=== PATIENT | female | born 1985 | race Asian ===

== ENCOUNTER 2020-05-27 06:27 | Emergency (ER) | payer BC ==
[~2020-05-27] VITALS: Ht 149.9 cm; Wt 59.9 kg
[2020-05-27 06:38] VITALS: Ht 149.9 cm; Wt 59.9 kg
[2020-05-27 07:21] LABS: CALCIUM 8.8 mg/dL (8.5-10.1); CARBON DIOXIDE 25.4 mmol/L (21-32); CHLORIDE SERUM 103 mmol/L (98-107); GFR1 > 60 mL/min; GLUCOSE SERUM 97 mg/dL (74-106); POTASSIUM SERUM 3.7 mmol/L (3.5-5.1); SODIUM SERUM 138 mmol/L (136-145)
[2020-05-27 07:25] LABS: ALKALINE PHOSPHATASE 74 U/L (46-116); ALT/SGPT 77 U/L (14-59); AST/SGOT 30 U/L (15-37); BILIRUBIN DIRECT 0.18 mg/dL (0.0-0.2); BILIRUBIN TOTAL 0.8 mg/dL (0.20-1.00); LIPASE 180 IU/L (73-393)
[2020-05-27 07:31] LABS: BASOPHIL % 0.6 % (0-2); PLATELET COUNT 370 x10^3mcL (130-400); RED CELL DISTRIBUTION WIDTH 12.5 % (11.5-14.5)
[2020-05-27 07:41] LABS: microscopic required? YES; urine erythrocyte TRACE (NEGATIVE)
[2020-05-27 08:16] LABS: FREE T4 1.33 ng/dL (0.76-1.46)
[2020-05-27 11:46] VITALS: BP 106/69
== END 2020-05-27 11:46 | disposition home or self-care (01) ==
LOC: ED 06:27
PROVIDERS: Emergency Medicine
DX: R11.0 Nausea (principal); R35.0 Frequency of micturition; R63.0 Anorexia
CPT/HCPCS: 84439; Q9967